=== PATIENT | female | born 2000 | race Caucasian/White ===

== ENCOUNTER 2025-06-14 15:56 | Emergency (ER) | payer OTHER, SELFPAY ==
[2025-06-14 16:17] VITALS: BP 142/101
[2025-06-14 17:56] LABS: HCG, Urine Qualitative Screen Negative
[2025-06-14 19:21] VITALS: BMI 33.7
[2025-06-14 19:23] VITALS: BP 149/94
--- NOTE | 2025-06-14 19:32 | ED.GENMED ---
History of Present Illness
General
Chief Complaint: Head Injury
Source: patient
Exam Limitations: none
Time Seen by Provider: 06/14/25 19:21
Nursing documentation reviewed up to this point in time: agreed with
History of Present Illness
History of Present Illness:
Patient states she fell in her bathroom on friday. Hit back of head on corner of wall. She feels that she lost consciousness for a few seconds. Unwitnessed event. SInce then she reports head pressure. SHe was evaluated at and sent to ED for
CT. To ED accompanied by mother.
Past History
Past History
ED Past Medical History: None
Review of Systems
Review of Systems
Allergies reviewed?: Yes
All Other Systems: ROS reviewed and negative except as documented in HPI and ROS
Constitutional: Reports no symptoms
EENT: Reports no symptoms
Respiratory: Reports no symptoms
Cardiac: Reports no symptoms
ABD/GI: Reports no symptoms
: Reports no symptoms
Musculoskeletal: Reports no symptoms
Skin: Reports no symptoms
Neurological: Reports other (head pressure)
Psychiatric: Reports no symptoms
Phy Exam
General Physical Exam
General Presentation: well appearing and no apparent distress
General age: appears stated age
General Skin: warm and dry
General Habitus: normal
General Mental: alert
ENT Exam
ENT Exam: EOMI, TM's normal and neck supple
Eye Exam
Eye Exam: PERRL, EOMI, conjunctiva normal and globe normal
Neurological Exam
Neurological Exam: alert, oriented x3, CN II-XII intact, no motor deficits, no sensory deficits and speech normal
Taylor Coma Scale
Eye Opening: Spontaneous
Verbal Response: Oriented
Motor Response: Obeys Commands
GCS Total Score: 15
Mental
Mental Status: oriented to person, oriented to place, oriented to time and usual mental status
Cranial
Cranial Nerves: normal
EOM (CN3/4/6): intact
Motor
Seizure Activity: none
Gait: normal
Tremors: none
Other Movement Disorders: none
Right upper extremity: 4
Right lower extremity: 4
Left upper extremity: 4
Left lower extremity: 4
Bilateral upper extremities: 4
Bilateral lower extremities: 4
Sensory
Sensory Exam: intact
Cerebellar
Cerebellar Function: normal finger to nose, normal heel to [place] and normal Romberg test
Musculoskeletal Exam
Musculoskeletal Exam: full ROM and neuro vasc intact
Skin Exam
Skin Exam: normal color, warm/dry and no rash
Psychiatric Exam
Psychiatric Exam: normal mood/affect
Course
Orders/Labs/Results
Orders:
Orders
06/14/25 16:15
CT Head W/o Iv Contrast Urgent
Comment:
Reason For Exam: hit head
06/14/25 17:08
Test Result ONCE
06/14/25 17:10
HCG, Urine Qualitative Screen Urgent
Date Specimen was Collected: 06/14/25
Time Specimen was Collected: 17:08
Vital Signs
Initial and Last Documented VS:
Initial Vital Signs
Temp Pulse Resp BP Pulse Ox
98.5 F 77 17 142/101 99
06/14/25 16:17 06/14/25 16:17 06/14/25 16:17 06/14/25 16:17 06/14/25 16:17
Last Documented Vital Signs
Temp Pulse Resp BP Pulse Ox
98.5 F 70 18 149/94 98
06/14/25 16:17 06/14/25 19:23 06/14/25 19:23 06/14/25 19:23 06/14/25 19:32
*Radiology
Radiology exam reviewed: radiology read reviewed
*Pulse Oximetry
SaO2: 98
Oxygen Mode of Delivery: Room air
Patient hypoxic: no
*Critical Care Note
Total Time (30-74mins, 75-104mins- exclusive of procedures): Not Applicable
Update Note
Update Note:
Ppatient to ED with report of head fullness after fall on Friday. Head CT neg for acute findings. Neurogically she is baseline. Neuro exam unremarkable. WIll discharge home. SHe will follow up with PCP. Given instructions on s/s to return to ED
and she is agreeable to plan.
ED Attending Note
-
Portions of this chart may have been created with voice recognition software.� Occasional wrong word or��sound alike� substitutions may have occurred due to the inherent limitations of voice recognition software.
Discharge Plan
Departure
Patient Disposition: Home (Routine Discharge)
Date of Disposition: 06/14/25
Time of Disposition: 19:32
Patient with high blood pressure during this ER visit?: No
Condition: Good
Covid-19: Not Applicable
Discharge Problem:
Head injury
Instructions: Concussion, Adult (DC), Head Injury in Adults (DC)
Prescriptions:
No Action
cetirizine 10 MG tablet
10 mg PO DAILY
Activity Restrictions/Additional Instructions:
Follow up with your family doctor.
Interventions
Interventions:
*Risk Screen - Suicide Last Done: 06/14/25 16:17
*General Assessment Last Done: 06/14/25 16:17
*Neglect/Abuse Screening Last Done: 06/14/25 16:17
*ED COVID-19 Vaccine History Last Done: 06/14/25 16:17
*Nursing Disposition Last Done: 06/14/25 20:09
ED- Neurological Assessment Last Done: 06/14/25 19:22
ED-Skin Assessment Last Done: 06/14/25 19:22
Discharge Date and Time
Discharge Date/Time: 06/14/25 20:10
Print Language: GREEK
== END 2025-06-14 20:10 | disposition home or self-care (01) ==
LOC: EMR 15:56
PROVIDERS: Emergency Medicine; EMERGENCY PHYSICIAN Emergency Medicine; FAMILY PHYSICIAN Family Medicine
DX: S09.90XA Unspecified injury of head, initial encounter (principal); W19.XXXA Unspecified fall, initial encounter; W22.09XA Striking against other stationary object, initial encounter
CPT/HCPCS: 99284; 70450; 81025